=== PATIENT | female | born 1990 | race African-American/Black ===

== ENCOUNTER 2017-12-29 08:22 | Emergency (ER) | payer OTHER ==
[~2017-12-29] VITALS: Ht 157.5 cm; Wt 104.3 kg
[~2017-12-29 08:22] MED LIST: ABILIFY MAINTE300 MG IM; CARAFATE 11 GM/10 M1 PO; HALDOL DECAN50 MG/M1; OVCON-351 EACH PO; PRILOSEC 20 MG20 MG PO; PRISTIQ50 MG PO; RANITIDINE 150150 M1 PO; TRILEPTAL150 MG PO
[2017-12-29] MEDS ORDERED: INVEGA SUS39 MG/0.25 IM (08:37)
[2017-12-29] MEDS ORDERED: FLEXERIL PO (10:20)
[2017-12-29] MEDS ORDERED: NAPROSYN500 MG PO (10:20)
[2017-12-29 10:32] VITALS: BP 124/62
== END 2017-12-29 10:34 | disposition home or self-care (01) ==
LOC: ER 08:22
DX: M54.2 Cervicalgia (principal); M54.5 Low back pain; M79.604 Pain in right leg; F31.9 Bipolar disorder, unspecified; F25.9 Schizoaffective disorder, unspecified; V49.19XA Passenger injured in collision with other motor vehicles in nontraffic accident, initial encounter; Y93.89 Activity, other specified; Y92.89 Other specified places as the place of occurrence of the external cause; Y99.8 Other external cause status

== ENCOUNTER 2019-04-06 19:00 | Emergency (ER) | payer OTHER ==
[~2019-04-06] VITALS: Ht 157.5 cm; Wt 104.3 kg
[~2019-04-06 19:00] MED LIST changes: +FLEXERIL PO; +INVEGA SUS39 MG/0.25 IM; +NAPROSYN500 MG PO
[2019-04-06 19:41] LABS: ABSOLUTE NEUTROPHILS 6.2 thou/uL (1.4-8.2); BASOPHILS 0.6 % (0.0-2.0); EOSINOPHILS 1.8 % (0.0-3.0); HEMATOCRIT 35.9 % (37.0-47.0); HEMOGLOBIN 11.5 gm/dL (12.0-15.0); LYMPHOCYTES 25.6 % (24.0-44.0); PLATELET COUNT 278 thou/uL (150-400); RBC 4.78 mil/uL (4.20-5.00); RDW 16.1 % (10.5-14.5); WBC 9.4 thou/uL (4.0-11.0)
[2019-04-06 19:48] LABS: CALCIUM 8.8 mg/dL (8.5-10.1); CREATININE 0.7 mg/dL (0.6-1.0); POTASSIUM 3.4 mmol/L (3.5-5.1)
[2019-04-06 19:55] LABS: ALBUMIN 3.3 g/dL (3.4-5.0); TOTAL BILIRUBIN 0.2 mg/dL (<0.1-1.0); TOTAL PROTEIN 7.9 g/dL (6.4-8.2)
[2019-04-06 20:00] LABS: AMP/METHAMP Negative (Negative); BARBITURATES Negative (Negative); BENZODIAZEPINES Negative (Negative); COCAINE Negative (Negative); METHADONE Negative (Negative); OPIATES Negative (Negative); PCP Negative (Negative)
[2019-04-06 21:59] LABS: URINE BILIRUBIN NEGATIVE (Negative); URINE BLOOD TRACE (Negative); URINE CLARITY CLOUDY; URINE COLOR YELLOW; URINE GLUCOSE-RANDOM* NEGATIVE (Negative); URINE KETONES NEGATIVE (Negative); URINE LEUKOCYTES-REFLEX NEGATIVE (Negative); URINE NITRITE-REFLEX NEGATIVE (Negative); URINE PROTEIN (DIPSTICK) NEGATIVE (Negative); URINE SPECIFIC GRAVITY >= 1.030 (1.005-1.035); URINE UROBILINOGEN 0.2 E.U./dl (0.2-1.0)
[2019-04-06] MEDS ORDERED: PHENERGAN 25 MG25 M1 PO (22:13)
[2019-04-06] MEDS ORDERED: NORCO 5-325 TA1 EAC1 PO (22:13)
[2019-04-06] MEDS ORDERED: ZOFRAN 4 MG ORAL4 MG PO (22:13)
[2019-04-06 22:46] VITALS: BP 148/84
== END 2019-04-06 22:48 | disposition home or self-care (01) ==
LOC: ER 19:00
PROVIDERS: Emergency Medicine; Nurse Practitioner Family
DX: K80.20 Calculus of gallbladder without cholecystitis without obstruction (principal); R11.2 Nausea with vomiting, unspecified; N85.8 Other specified noninflammatory disorders of uterus; F31.9 Bipolar disorder, unspecified; F25.9 Schizoaffective disorder, unspecified; Z79.899 Other long term (current) drug therapy